=== PATIENT | female | born 1975 ===

== ENCOUNTER → 2016-09-23 | Outpatient (CLI) | payer OTHER ==
[2016-09-23 21:27] LABS: LYME DISEASE AB IGG NEG (NEG); LYME DISEASE AB IGM NEG (NEG)
[2016-09-24 06:39] LABS: ESTIMATED AVERAGE GLUCOSE 108 mg/dl; HA1C FLAG Normal (Normal)
[2016-09-28 02:22] LABS: ANTI-68 kd Ag (HSP-70 Ab) NEGATIVE (NEGATIVE)
== END | disposition home or self-care (01) ==
LOC: C.LAB1850 14:44
PROVIDERS: ATTEND Hospitalist
DX: Z00.00 Encounter for general adult medical examination without abnormal findings (principal); H91.20 Sudden idiopathic hearing loss, unspecified ear

== ENCOUNTER → 2016-09-24 | Outpatient (CLI) | payer OTHER ==
--- NOTE | 2016-09-27 14:55 | MAMMOGRAPHY REPORT ---
BILATERAL DIGITAL DIAGNOSTIC MAMMOGRAM TOMOSYNTHESIS WITH CAD AND TARGETED BILATERAL ULTRASOUND: 09/24 CLINICAL HISTORY: The patient reports that her physician felt a palpable lump during a clinical exam . TECHNIQUE: Breast tomosynthesis in addition to standard 2D mammography was performed. Current study was also evaluated with a Computer Aided Detection (CAD) system. Bilateral CC and MLO views and sp ot compression left CC and MLO 2-D and tomosynthesis views were obtained. COMPARISON: No prior exams were available for comparison. BREAST COMPOSITION: The tissue of both breasts is extremely dense, which lowers the sensitivity of mammography. FINDINGS: A triangle marker ambrose site of the palpable lump in the right subareolar region. At the site of the palpable lump there is an oval partially circumscribed and partially obscured mass monty uring at least 2.6 cm. Additionally, multiple other round/oval circumscribed masses are seen within the right breast on the tomosynthesis images, predominantly inferiorly. There is questionable arch itectural distortion seen within the left 3:00 breast, which does not persist on the spot compressio n tomosynthesis views. Other probable obscured masses are seen within the left medial and lateral b reast on the spot compression tomosynthesis images scattered bilateral benign-appearing calcificatio ns are noted. Targeted ultrasound was performed of the right breast in the region of the mammographic masses and a t the site of the palpable lump. In the right subareolar breast at the site of the palpable lump, t here is a round circumscribed hypoechoic solid mass which measures 2.4 x 1.9 x 2.3 cm. This corresp onds with the largest mammographic mass. Multiple other similar appearing hypoechoic solid masses w ere seen within the right breast on ultrasound, including a 2.1 x 1.0 x 1.4 cm hypoechoic lobulated circumscribed mass in the right breast at 6:00, 1 cm from the nipple. Another oval circumscribed hy poechoic mass is seen within the right breast at 10:00 subareolar region, measuring 1.3 x 0.8 x 1.2 cm. A similar appearing hypoechoic circumscribed mass is seen in the right breast at 8:00 periareol ar region, measuring 9 x 7 x 8 mm. A few benign cysts were also noted in the right breast during th e exam. The hypoechoic masses are all similar in appearance and likely represent fibroadenomas alth ough are indeterminate. Recommend ultrasound-guided core needle biopsy of the largest palpable mass in the right subareolar breast. Targeted ultrasound was performed of the left 3:00 breast in the region of the possible architectura l distortion which did not persist on the additional views. No suspicious abnormality is seen in th is region. In the left 1:00 subareolar breast, an oval anechoic benign simple cyst measuring 2 x 0. 8 cm is seen. Another oval anechoic benign cyst measuring 8 mm is seen within the left breast at 5: 00. A round circumscribed 1.4 x 0.8 x 1.1 cm mass is seen within the left breast at 11:00, 2 cm fro m the nipple. This is predominantly anechoic but contains some echogenic debris within it, consiste nt with a complicated cyst. In the left breast at 12:30, 2 cm from the nipple, there is an oval mix ed echogenicity but predominantly hypoechoic oval mass which measures 1.6 x 0.6 x 1.1 cm. The maricruz ns are not completely circumscribed. This could represent a fibroadenoma or even normal prominent b reast tissue. Recommend ultrasound-guided core needle biopsy for further evaluation. IMPRESSION: ACR BI-RADS CATEGORY 4A: LOW SUSPICION FOR MALIGNANCY, TARGETED ULTRASOUND ACR BI-RADS CATEGORY 4A: LOW SUSPICION FOR MALIGNANCY 1. Multiple similar-appearing solid hypoechoic masses in the right breast, which may represent fibr oadenomas although are indeterminate. Recommend ultrasound guided core needle biopsy of the dominan t 2.4 cm palpable mass in the right subareolar breast. Pending benign pathology, recommend follow-u p ultrasound of the other similar appearing masses in 6 months. 2. Mixed echogenicity oval 1.6 cm mass in the left breast at 12:30, which is indeterminate and may represent a fibroadenoma versus normal breast tissue. Recommend ultrasound guided core needle biops y for further evaluation. 3. Bilateral benign cysts. A phone call was made to the physician's office to confirm faxed results were received. The patient has been verbally notified of the results. She tentatively scheduled the biopsies before leaving t he department (45 minute time slot). Approximately 10% of breast cancers are not detected with mammography. A negative mammographic repor t should not delay biopsy if a clinically suggestive mass is present. Ximena Han M.D. ah/:09/24/2016 16:06:41 Transformer Assembler: Tiffanie Abbott RT(R)(M), [facility] letter sent: Abnormal 4/5 BI-RADS Code: ACR BI-RADS Category 4A: Low Suspicion For Malignancy Ultrasound BI-RADS: ACR BI-RADS Category 4A: Low Suspicion For Malignancy
== END | disposition home or self-care (01) ==
LOC: C.MAMM 10:11
PROVIDERS: ATTEND Obstetrics & Gynecology
DX: N63 Unspecified lump in breast (principal); R92.8 Other abnormal and inconclusive findings on diagnostic imaging of breast

== ENCOUNTER → 2016-09-29 | Outpatient (CLI) | payer OTHER ==
--- NOTE | 2016-09-29 09:54 | Discharge Instructions ---
Discharge Instructions Procedure Procedure Date: Sep 29, 2016. Reason for visit: Bilateral Masses. Discharge Discharge Date: Sep 29, 2016. Discharge Diagnosis: post right and left breast ultrasound guided core biopsy Instructions Activity Recommendations: Additional Limitations (see below) Return to School/Work: no limitations Recommended Home Diet: No Limitations Provider Instructions: ACTIVITY RECOMMENDATIONS: * No lifting, pushing, pulling or exercising the affected side for three days. RETURN TO SCHOOL/WORK: * You may return to work/school after the procedure, but do not perform any strenuous activities for 24 to 48 hours. MEDICATIONS: * Tylenol (two 325 mg) every four to six hours if needed for mild pain (if not allergic to Tylenol). DIET: * Resume previous diet. SPECIAL CARE INSTRUCTIONS: * Keep biopsy site dry for 24 hours. May shower after 24 hours, but do not soak (bathe) incision. * May remove Tegaderm (plastic patch) tomorrow AFTER showering. * Leave the steri-strips on for one week. Allow the steri-strips to fall off by themselves. If not off after one week, you may remove them. You may place a Bandaid crosswise over the strips, if desired. * Apply ice 10 minutes on and 10 minutes off as needed. * Wear a bra at bedtime to sleep more comfortably for 2-3 days. * Your referring physician should have the results after approximately 5 to 7 business days. * Call for unusual bleeding, fever, drainage, etc or if you have any questions call [phone] during normal business hours or after hours call Dr Ennis, . FOLLOW UP VISIT: Follow-up with Referring Physician as scheduled. [facility] Recommendations: Call your doctor if: * Temperature above 101 degrees * Pain not relieved by pain medicine ordered * There is increased drainage or redness from any incision * You have any unanswered questions or concerns. Your Doctors Instructions noted above were prepared by provider Blessing Ennis. Patient Signature Section: Patient Instructions Signature Page Jingromina Suggs Patient (or Guardian) Signature/Date: I have read and understand the instructions given to me by my caregivers. Caregiver/RN/Doctor Signature/Date: The above-named patient and/or guardian has received patient instructions on this date. + Original Patient Signature Page (only) stays with chart. Please make copy for patient.
--- NOTE | 2016-09-29 17:00 | MAMMOGRAPHY REPORT ---
THIS REPORT HAS BEEN AMENDED. ULTRASOUND GUIDED BIOPSY RIGHT BREAST: 09/29/2016 CLINICAL HISTORY: 40-year-old woman with multiple solid masses in the right breast and indeterminate solid and cystic mass in the left breast. Patient was observed for biopsy of the dominant solid ma ss in the retroareolar right breast and lobulated solid and cystic mass in the 12:30 left breast. COMPARISON: Comparison is made to exams dated: 09/24/2016 ultrasound and 09/24/2016 mammogram - [facility]. PATIENT CONSENT: The procedure, risks and benefits were discussed with the patient and informed writ ten consent was obtained. Specific risks to this procedure include: bleeding, infection, puncture of adjacent structure, nontarget biopsy, sampling error and medication reaction. PROCEDURE DESCRIPTION: A time out was performed and both breasts were agreed as sites of biopsy. First the dominant solid mass in the retroareolar right breast was identified and targeted for biops y. The skin was prepped and draped in the usual sterile fashion. The dominant solid mass in the ret roareolar right breast was chosen as the target for biopsy. Subcutaneous and intraparenchymal 1% buf fered lidocaine was administered as local anesthesia. A skin incision was made. Through the incisio n, 3 samples were taken with a 14 gauge Achieve biopsy device. A metallic marker was placed at the b iopsy site. Hemostasis was achieved after manual compression. The patient tolerated the procedure we ll and there was no immediate complication. Then the lobulated hypoechoic and anechoic solid-appearing mass in the 12:30 left breast was identif ied and targeted for biopsy. The skin was prepped and draped in the usual sterile fashion. Addition al subcutaneous and intraparenchymal 1% buffered lidocaine was administered as local anesthesia. A s kin incision was made. Through the incision, 4 samples were taken with a 14 gauge Achieve biopsy de vice. A metallic marker was placed at the biopsy site. Hemostasis was achieved after manual compress ion. The patient tolerated the procedure well and there was no immediate complication. All of the samples were sent to the pathology department in appropriately labeled containers. Postprocedure CC and ML tomosynthesis views of each breast were obtained. Metallic biopsy markers are identified bilaterally. No significant hematoma is seen. Pending [facility] pathology results, a follow-up right mammogram and repeat targeted ultrasound is recommended to en sure stability of other smaller solid masses seen on prior diagnostic workup. IMPRESSION: ULTRASOUND GUIDED BIOPSY Status post ultrasound-guided core biopsy of masses in the retroareolar right breast and 12:30 left breast, with biopsy markers placed at each site. Pending benign pathology results, follow-up right mammograms and repeat targeted ultrasound is recom mended to ensure stability of other smaller similar appearing solid masses. The patient will receive notification of the biopsy results from her referring physician. Blessing Ennis M.D. ay/:09/29/2016 15:51:11 Attending Technologist: Dr. Blessing Ennis, [facility] Radio Repairman: Danny Wong RT(R)(M), [facility] AMENDMENT: 10/06/2016 Blessing Ennis M.D. Pathology results from the ultrasound guided core biopsy in the retroareolar right breast yielded a fibroadenoma. Negative for malignancy. Biopsy of a hypoechoic lesion in the 12:30 left breast yiel ded benign breast tissue. Adenosis. Focal fibroadenomatoid change. Negative for DCIS and invasive carcinoma. The pathology results are concordant with the imaging appearance bilaterally. As per p revious recommendations, repeat targeted ultrasound is recommended in the right breast in 6 months t o ensure stability of other solid masses, all smaller than the biopsied mass.
--- NOTE | 2016-10-01 08:40 | MAMMOGRAPHY REPORT ---
ULTRASOUND GUIDED BIOPSY: 09/29/2016 CLINICAL HISTORY: Palpable dominant mass in the retroareolar right breast, and mixed solid and cysti c mass in the 12:30 left breast. Patient presents for ultrasound guided core needle biopsy in each breast. Please refer to the report from right breast ultrasound guided core biopsy performed the same time f or full detail. IMPRESSION: ULTRASOUND GUIDED BIOPSY Please refer to the report from right breast ultrasound guided core biopsy performed the same time f or full detail. Blessing Ennis M.D. ay/:09/29/2016 09:56:06 Attending Technologist: Dr. Blessing Ennis, [facility] Card Painter: Danny Wong RT(R)(M), [facility]
--- NOTE | 2016-10-01 08:41 | MAMMOGRAPHY REPORT ---
BILATERAL DIGITAL DIAGNOSTIC MAMMOGRAM TOMOSYNTHESIS: 09/29/2016 CLINICAL HISTORY: Status post ultrasound-guided core needle biopsy in the retroareolar right breast and 12:30 left breast. Please refer to the report from right breast ultrasound guided core biopsy performed the same time f or full detail. IMPRESSION: POST PROCEDURE IMAGING FOR MARKER PLACEMENT Please refer to the report from right breast ultrasound guided core biopsy performed the same time f or full detail. Approximately 10% of breast cancers are not detected with mammography. A negative mammographic repor t should not delay biopsy if a clinically suggestive mass is present. Blessing Ennis M.D. ay/:09/29/2016 09:52:34 Scanning Coordinator: Danny CURIEL(R)(M), [facility] BI-RADS Code: Post Procedure Imaging For Marker Placement
== END | disposition home or self-care (01) ==
LOC: C.MAMM 09:05
PROVIDERS: ATTEND Obstetrics & Gynecology
DX: N63 Unspecified lump in breast (principal)

== ENCOUNTER → 2016-10-07 | Outpatient (CLI) | payer OTHER | END | disposition home or self-care (01) | LOC: C.PATHSPEC 15:38 | PROVIDERS: ATTEND Obstetrics & Gynecology | DX: N84.1 Polyp of cervix uteri (principal) ==

== ENCOUNTER → 2016-10-11 | Outpatient (CLI) | payer OTHER ==
--- NOTE | 2016-10-11 12:20 | DIAGNOSTIC IMAGING REPORT ---
NUCLEAR MEDICINE HEPATOBILIARY SCAN CLINICAL HISTORY: Chronic right upper quadrant abdominal pain COMPARISON STUDY: No previous studies for comparison. FINDINGS: The patient was injected with 5.5 mCi of technetium 99m Choletec. Sequential anterior imaging was performed. The gallbladder was first visualized on the 40 minute image. There is normal passage of activity into small bowel. Hepatic excretion appears unremarkable. IMPRESSION: Normal study. No evidence of cystic duct obstruction. Electronically signed by: José Miguel Collazo M.D. 10/11/2016 12:18 PM Dictated Date/Time: 10/11/2016 12:17 PM
== END | disposition home or self-care (01) ==
LOC: C.NUCL 10:50
PROVIDERS: ATTEND Internal Medicine
DX: R10.11 Right upper quadrant pain (principal)

== ENCOUNTER → 2016-11-02 | Outpatient (CLI) | payer OTHER ==
--- NOTE | 2016-11-02 09:36 | DIAGNOSTIC IMAGING REPORT ---
ULTRASOUND ABDOMEN COMPLETE CLINICAL HISTORY: Chronic right upper quadrant abdominal pain. COMPARISON STUDY: Nuclear hepatobiliary scan dated 10/11/2016. TECHNIQUE: Real-time, grayscale, and color flow sonography of the abdomen was performed. Images are reviewed in the transverse and longitudinal planes. FINDINGS: Liver: The liver is normal in size and echotexture. There is no intrahepatic biliary ductal dilatation. The main portal vein is patent. Gallbladder: The gallbladder is normal in appearance. No gallstones are identified. There is no gallbladder wall thickening. Trace pericholecystic fluid is noted. A sonographic Rashid's sign is equivocal. The common bile duct measures up to 0.6 cm in diameter. Pancreas: Visualized portions of the pancreatic head and body are normal in appearance. Spleen: The spleen is normal in size and echotexture, measuring 9.1 cm in length. Kidneys: The kidneys are normal in size and echotexture. There is no hydronephrosis. The right kidney measures 9.9 cm in length and the left kidney measures 10.1 cm in length. No shadowing calculi are identified. A subcentimeter cyst is suggested in the right lower pole. Abdominal vasculature: Visualized portions of the abdominal aorta and IVC are normal in appearance. Ascites: None. IMPRESSION: 1. No gallstones are identified. There is no convincing sonographic evidence of acute cholecystitis. 2. There is trace nonspecific pericholecystic fluid. This is of indeterminant significance. Electronically signed by: Adi Odom M.D. 11/02/2016 9:34 AM Dictated Date/Time: 11/02/2016 9:29 AM
== END | disposition home or self-care (01) ==
LOC: C.ULTR 08:37
PROVIDERS: ATTEND Registered Nurse
DX: R14.0 Abdominal distension (gaseous) (principal); R10.11 Right upper quadrant pain